=== PATIENT | female | born 1990 | race Two or more races ===

== ENCOUNTER 2016-10-11 22:28 | Emergency (ER) | payer MEDICAID, OTHER ==
[~2016-10-11] VITALS: Ht 162.6 cm; Wt 59.0 kg
[2016-10-11 23:27] VITALS: BP 150/69
== END 2016-10-12 00:27 | disposition home or self-care (01) ==
LOC: ER 22:29
DX: R05 Cough (principal); G03.9 Meningitis, unspecified
CPT/HCPCS: 99281; A4606; Z7610; Z7502